=== PATIENT | male | born 1970 | race Caucasian/White ===

== ENCOUNTER 2016-08-25 12:49 | Observation (INO) | payer MEDICARE, OTHER ==
[~2016-08-25] VITALS: Ht 177.8 cm; Wt 70.0 kg
[~2016-08-25 12:49] MED LIST: CALC667T PO; COUM2.5T PO; DIALCAP PO; HYDR10TA16 PO; LEVO100T75 PO; METO50CR PO; OMEP20TA PO
[2016-08-25 12:51] VITALS: BP 109/67; PULSE 80; RESP 20; TEMP 97.9; O2SAT 100
[2016-08-25] MEDS ORDERED: OMEP20TA PO (13:25)
[2016-08-25] MEDS ORDERED: PHOS667C5 PO (13:25)
[2016-08-25] MEDS ORDERED: AMIO0.1T PO (13:25)
[2016-08-25] MEDS ORDERED: FAMO1TAB37 PO (13:25)
[2016-08-25] MEDS ORDERED: COUM5TAB PO (13:25)
[2016-08-25] MEDS ORDERED: DIAL3000 PO (13:25)
[2016-08-25] MEDS ORDERED: LEVO100T5 PO (13:25)
[2016-08-25] MEDS ORDERED: MSIR15 PO (13:27)
[2016-08-25] MEDS ORDERED: MORP1TAB25 PO (13:27)
[2016-08-25] MEDS ORDERED: LORA1TAB12 PO (13:28)
[2016-08-25 14:49] LABS: AUTOMATED NEUTROPHIL # 4.3 TH/MM3 (1.8-7.7); BASOPHIL # 0.1 TH/MM3 (0-0.2); BASOPHIL % 1.3 % (0.0-2.0); EOSINOPHIL # 0.4 TH/MM3 (0-0.4); EOSINOPHIL % 6.1 % (0.0-4.0); HEMATOCRIT 36.4 % (39.0-51.0); LYMPHOCYTE # 0.9 TH/MM3 (1.0-4.8); MEAN CELL VOLUME 94.6 FL (80.0-100.0); MEAN CORPUSCULAR HEMOGLOBIN 30.2 PG (27.0-34.0); MEAN CORPUSCULAR HGB CONC 31.9 % (32.0-36.0); MONO % 13.1 % (0.0-8.0); NEUT % 65.5 % (16.0-70.0); PLATELET COUNT 214 TH/MM3 (150-450); RED BLOOD COUNT 3.85 MIL/MM3 (4.50-5.90); RED CELL DISTRIBUTION WIDTH 18.7 % (11.6-17.2); WHITE BLOOD COUNT 6.6 TH/MM3 (4.0-11.0)
[2016-08-25 14:53] LABS: APTT (PATIENT) 28.5 SEC (24.3-30.1); INTERNATIONAL NORMALIZED RATIO 1.9 RATIO; PROTHROMBIN TIME - PATIENT 21.4 SEC (9.8-11.6)
[2016-08-25] MEDS ORDERED: traMADol HCL 50 MG TAB PO ONE (15:00)
[2016-08-25] MEDS ORDERED: CYCLOBENZAPRINE HCL 10 MG TAB PO ONE (15:00)
[2016-08-25 15:08] LABS: ALT (GPT) 53 U/L (12-78); ANION GAP 12 MEQ/L (5-15); AST (GOT) 86 U/L (15-37); BICARBONATE 28.2 MEQ/L (21.0-32.0); BLOOD UREA NITROGEN 33 MG/DL (7-18); CHLORIDE 97 MEQ/L (98-107); GLOMERULAR FILTRATION RATE 5 ML/MIN (>89); MAGNESIUM 2.8 MG/DL (1.5-2.5); SODIUM (NA) 137 MEQ/L (136-145)
[2016-08-25 15:10] LABS: POTASSIUM 4.9 MEQ/L (3.5-5.1)
[2016-08-25 15:13] LABS: ALKALINE PHOSPHATASE 70 U/L (45-117); TOTAL BILIRUBIN ADULT 0.8 MG/DL (0.2-1.0)
--- NOTE | 2016-08-25 15:15 | RADRPT ---
EXAM DATE/TIME: 08/25/2016 14:46 [facility] COMPARISON: CHEST PA & LAT, June 16, 2011, 14:04. INDICATIONS : Cough and shortness of breath. MEDICAL HISTORY : None. SURGICAL HISTORY : Pacemaker. ENCOUNTER: Initial ACUITY: 2 days PAIN SCORE: 0/10 LOCATION: chest FINDINGS: PA and lateral views of the chest demonstrate the lungs to be symmetrically aerated without evidence of mass, infiltrate or effusion. Right-sided defibrillator. The cardiomediastinal contours are unrem arkable. Osseous structures are intact. CONCLUSION: No acute disease. Berny Pedersen MD on August 25, 2016 at 15:13 Board Certified Radiologist. This report was verified electronically.
--- NOTE | 2016-08-25 15:16 | RADRPT ---
EXAM DATE/TIME: 08/25/2016 14:51 [facility] COMPARISON: No previous studies available for comparison. INDICATIONS : Patient complains of left femur pain proximally. MEDICAL HISTORY : None. SURGICAL HISTORY : Venous graft for left forearm in July 2016. ENCOUNTER: Initial ACUITY: 1 day PAIN SCORE: 5/10 LOCATION: Left Femur FINDINGS: Two view examination of the left femur demonstrates no evidence of fracture or dislocation. Bony min eralization is normal. The soft tissue structures are intact. Vascular calcifications. Radiopaque de nsities in the pelvis likely large bowel. CONCLUSION: No acute fracture. Berny Pedersen MD on August 25, 2016 at 15:14 Board Certified Radiologist. This report was verified electronically.
[2016-08-25 15:32] LABS: HEMO FLAGS AUTO DIFF
[2016-08-25 15:33] LABS: PLATELET ESTIMATE SMEAR NORMAL (NORMAL); PLATELET MORPHOLOGY NORMAL (NORMAL); SCAN/DIFF AUTO DIFF CONFIRMED
[2016-08-25 16:00] VITALS: BP 110/65; PULSE 70; RESP 18; O2SAT 97
[2016-08-25] MEDS ORDERED: ALUMINUM/MAGNESIUM/SIMETH 30 ML CUP PO ONE (16:15)
[2016-08-25] MEDS ORDERED: LIDOCAINE VISCOUS 2% SOLN 15 ML UDC PO ONE (16:15)
--- NOTE | 2016-08-25 17:11 | PD ---
HPI Chief Complaint: Medical Clearance Time Seen by Provider: 13:31 Travel History International Travel<30 days: No Contact w/Intl Traveler<30days: No Traveled to known affect area: No History of Present Illness HPI Patient is a 46-year-old male with history of end-stage renal disease, dialyzed yesterday, who comes in complaining of generalized weakness. He has multiple complaints including having difficulty opening, and low back pain. His "esophageal issues" having going on for months since May. He says he has had the back pain for the past 3 weeks and it mostly bothers him when bending down to pick things up. His friend is very concerned because he is just been feeling unwell and seems very weak. He says that he often falls asleep 15 times a day. He denies any chest pain or shortness of breath. He denies any nausea or vomiting. PFSH Past Medical History Hx Anticoagulant Therapy: Yes (coumadin) Blood Disorders: No Heart Rhythm Problems: Yes Cancer: No Cardiovascular Problems: Yes (htn, [place]) Chest Pain: No Diabetes: No Endocrine: Yes Gastrointestinal Disorders: No Glaucoma: No Genitourinary: No Hepatitis: No Hiatal Hernia: No Hypertension: Yes Immune Disorder: No Implanted Vascular Access Dvce: Yes (L ARM) Musculoskeletal: No Neurologic: No Psychiatric: No Reproductive: No Respiratory: No Integumentary: No Renal Failure: Yes Thyroid Disease: Yes Tetanus Vaccination: < 5 Years Influenza Vaccination: Yes Past Surgical History Body Medical Devices: pacer/aicd Pacemaker: Yes Thoracic Surgery: Yes (AICD) Other Surgery: Yes (KIDNEY TRANSPLANT, L ARM FISTULA) Social History Alcohol Use: No Tobacco Use: No Substance Use: No Allergies-Medications (Allergen,Severity, Reaction): Coded Allergies: Lisinopril (Verified Allergy, Severe, swelling, 08/25/16) Percocet (Verified Allergy, Severe, swelling, 08/25/16) Reported Meds & Prescriptions Reported Meds & Active Scripts Active Reported Lorazepam 1 Mg Tab 1 Mg PO HS PRN Morphine IR (Morphine Sulfate) 15 Mg Tab 15 Mg PO Q4H PRN Morphine ER (Morphine Sulfate) 30 Mg Tab 30 Mg PO Q8H Pepcid (Famotidine) 20 Mg Tab 20 Mg PO BID Dialyvite 3000 Rx (B-Complex W/ B-Sfmpzn-O-Minerals) 1 Tab 1 Tab PO DAILY Amiodarone (Amiodarone HCl) 100 Mg Tab 100 Mg PO BID Coumadin (Warfarin) 5 Mg Tab 5 Mg PO DAILY Omeprazole 20 Mg Tab 20 Mg PO DAILY Levothyroxine (Levothyroxine Sodium) 100 Mcg Tab 100 Mcg PO DAILY Phoslo (Calcium Acetate (Phosphate Binder)) 667 Mg Cap 800 Mg PO TID Review of Systems Except as stated in HPI: all other systems reviewed are Neg General / Constitutional: No: Fever, Chills HENT: No: Headaches, Lightheadedness Cardiovascular: No: Chest Pain or Discomfort Respiratory: No: Shortness of Breath Gastrointestinal: No: Nausea, Vomiting Musculoskeletal: Positive: Pain Neurologic: Positive: Weakness Physical Exam Narrative GENERAL: Awake and alert, in no acute distress. SKIN: Warm and dry. HEAD: Atraumatic. Normocephalic. EYES: Pupils equal and round. No scleral icterus. ENT: Mucous membranes pink and moist. NECK: Trachea midline. No JVD. CARDIOVASCULAR: Regular rate and rhythm. No murmur appreciated. RESPIRATORY: No accessory muscle use. Clear to auscultation. Breath sounds equal bilaterally. GASTROINTESTINAL: Abdomen soft, non-tender, nondistended. MUSCULOSKELETAL: No obvious deformities. No clubbing. No cyanosis. No edema. No spinal tenderness. NEUROLOGICAL: Awake and alert. No obvious cranial nerve deficits. Motor grossly within normal limits. Normal speech. PSYCHIATRIC: Appropriate mood and affect; insight and judgment normal. Data Data Last Documented VS Vital Signs Date Time Temp Pulse Resp B/P Pulse Ox O2 Delivery O2 Flow Rate FiO2 08/25/16 16:00 70 18 110/65 97 Room Air 08/25/16 12:51 97.9 Orders Complete Blood Count With Diff (08/25/16 13:53) Comprehensive Metabolic Panel (08/25/16 13:53) Electrocardiogram (08/25/16 ) Thyroid Stimulating Hormone (08/25/16 13:53) Magnesium (Mg) (08/25/16 13:53) Phosphorus (Po4) (08/25/16 13:53) Troponin I (08/25/16 13:53) Chest, Pa & Lat (08/25/16 ) Femur (Ap & Lat/2vws) (08/25/16 ) Act Partial Throm Time (Ptt) (08/25/16 14:25) Prothrombin Time / Inr (Pt) (08/25/16 14:25) Tramadol (Ultram) (08/25/16 15:00) Cyclobenzaprine (Flexeril) (08/25/16 15:00) Al-Mag Hy-Si 40-40-4 Mg/Ml Liq (Mag-Al P (08/25/16 16:15) Lidocaine 2% Viscous (Xylocaine 2% Visco (08/25/16 16:15) Admit Order (Ed Use Only) (08/25/16 ) Labs Laboratory Tests Test 08/25/16 14:25 White Blood Count 6.6 TH/MM3 Red Blood Count 3.85 MIL/MM3 Hemoglobin 11.6 GM/DL Hematocrit 36.4 % Mean Corpuscular Volume 94.6 FL Mean Corpuscular Hemoglobin 30.2 PG Mean Corpuscular Hemoglobin 31.9 % Concent Red Cell Distribution Width 18.7 % Platelet Count 214 TH/MM3 Mean Platelet Volume 10.8 FL Neutrophils (%) (Auto) 65.5 % Lymphocytes (%) (Auto) 14.0 % Monocytes (%) (Auto) 13.1 % Eosinophils (%) (Auto) 6.1 % Basophils (%) (Auto) 1.3 % Neutrophils # (Auto) 4.3 TH/MM3 Lymphocytes # (Auto) 0.9 TH/MM3 Monocytes # (Auto) 0.9 TH/MM3 Eosinophils # (Auto) 0.4 TH/MM3 Basophils # (Auto) 0.1 TH/MM3 CBC Comment AUTO DIFF Differential Comment AUTO DIFF CONFIRMED Platelet Estimate NORMAL Platelet Morphology Comment NORMAL Red Cell Morphology Comment NORMAL Prothrombin Time 21.4 SEC Prothromb Time International 1.9 RATIO Ratio Activated Partial 28.5 SEC Thromboplast Time Sodium Level 137 MEQ/L Potassium Level 4.9 MEQ/L Chloride Level 97 MEQ/L Carbon Dioxide Level 28.2 MEQ/L Anion Gap 12 MEQ/L Blood Urea Nitrogen 33 MG/DL Creatinine 10.43 MG/DL Estimat Glomerular Filtration 5 ML/MIN Rate Random Glucose 88 MG/DL Calcium Level 10.4 MG/DL Phosphorus Level 3.2 MG/DL Magnesium Level 2.8 MG/DL Total Bilirubin 0.8 MG/DL Aspartate Amino Transf 86 U/L (AST/SGOT) Alanine Aminotransferase 53 U/L (ALT/SGPT) Alkaline Phosphatase 70 U/L Troponin I 0.07 NG/ML Total Protein 9.6 GM/DL Albumin 3.6 GM/DL Thyroid Stimulating Hormone 19.600 uIU/ML 3rd Gen [facility] Medical Decision Making Medical Screen Exam Complete: Yes Emergency Medical Condition: Yes Medical Record Reviewed: Yes Interpretation(s) ECG shows paced rhythm Differential Diagnosis ACS versus hypothyroidism versus electrolyte abnormality Narrative Course Patient is a 46 year old male who comes in complaining of weakness. He also has multiple other chronic complaints. Exam shows no acute abnormalities. Patient was dialyzed yesterday. IV established, labs sent. Labs show a troponin of 0.07. TSH is elevated to 19. I informed the patient he needs to follow up with his doctors regarding his chronic issues. He will be admitted for his elevated troponin. Diagnosis Primary Impression: Elevated troponin Admitting Information Admitting Physician Requests: Admit Condition: Stable Shanice Magana MD Aug 25, 2016 17:11
--- NOTE | 2016-08-25 17:14 | HHI.FPPN ---
Subjective Subjective Patient seen and examined. Case reviewed and discussed Please refer to resident H&P for further details regarding HPI, ROS, PMH, SurgHx , FH and SocHx In summary, patient is an unfortunate 46yoM with multiple medical comborbidities including ESRD on HD, afib s/p ablation, CHF, DVT presenting with progressive worsening of swallowing and some pressure over mid-chest. He reports a history of complicated endoscopy and reports his swallowing became a little improved, but now it has continued to worsen over the last 1 month. [facility] Objective Objective Last Impressions Femur X-Ray 08/25/16 0000 Signed Impressions: Service Date/Time: Thursday, August 25, 2016 14:51 - CONCLUSION: No acute fracture. Berny Pedersen MD Chest X-Ray 08/25/16 0000 Signed Impressions: Service Date/Time: Thursday, August 25, 2016 14:46 - CONCLUSION: No acute disease. Berny Pedersen MD Laboratory Tests - Abnormals Test 08/25/16 14:25 Red Blood Count 3.85 MIL/MM3 Hemoglobin 11.6 GM/DL Hematocrit 36.4 % Mean Corpuscular Hemoglobin 31.9 % Concent Red Cell Distribution Width 18.7 % Monocytes (%) (Auto) 13.1 % Eosinophils (%) (Auto) 6.1 % Lymphocytes # (Auto) 0.9 TH/MM3 Prothrombin Time 21.4 SEC Chloride Level 97 MEQ/L Blood Urea Nitrogen 33 MG/DL Creatinine 10.43 MG/DL Estimat Glomerular Filtration 5 ML/MIN Rate Calcium Level 10.4 MG/DL Magnesium Level 2.8 MG/DL Aspartate Amino Transf 86 U/L (AST/SGOT) Troponin I 0.07 NG/ML Total Protein 9.6 GM/DL Thyroid Stimulating Hormone 19.600 uIU/ML 3rd Gen Vital Signs 08/25/16 08/25/16 12:51 13:14 Temp 97.9 Pulse 80 85 Resp 20 18 B/P 109/67 Pulse Ox 100 O2 Delivery Room Air Physical exam GENERAL: Thin male sitting up in bed, NAD SKIN: Warm and dry. Multiple scars from prior procedures HEAD: Normocephalic. AT EYES: No scleral icterus. No injection or drainage. ENT: OP clear. MM slightly dry NECK: Supple, trachea midline. No JVD or lymphadenopathy. CARDIOVASCULAR: Regular rate and rhythm without murmurs, gallops, or rubs. RESPIRATORY: Breath sounds equal bilaterally. No accessory muscle use. GASTROINTESTINAL: Abdomen soft, non-tender, nondistended. MUSCULOSKELETAL: No cyanosis, 1+ edema b/l LE to the knees. AVF L UE, L hand digits with partial amputations BACK: Nontender without obvious deformity. No CVA tenderness. NEURO: Awake and alert. Normal speech. CN grossly intact. Assessment Assessment 46yoM admitted with: ESRD Chronic Systolic Congestive Heart failure s/p PM Afib s/p ablation Multiple skin infections with poor wound healing DVT on anticoagulation Ankle fracture surgery Hx Diverticulitis AV Fistula PLAN PLAN STAT doppler LE to r/o DVT given subtherapeutic INR Resume home meds as appropriate Nephrology consult for HD ACS r/o with serial trop, ekg Supplemental oxygen as needed Dressing changes for hand Barium swallow Consider GI consult pending results ST Patient seen and examined. Case reviewed and discussed Agree with plan of care as discussed with me and documented in the resident note. Shabana Lazar MD Aug 25, 2016 17:14
--- NOTE | 2016-08-25 17:27 | HHI.HP ---
HPI Service Family Medicine Primary Care Physician Unknown Admission Diagnosis ACS Diagnoses: International Travel<30 Days: No Contact w/Intl Traveler<30days: No Known Affected Area: No History of Present Illness Patient is a 46-year-old male with a past medical history of AFIB s/p ablation, MN, CHF s/p AICD placement, ESRD, DVTs, and HTN that presents to the [place] ED with a chief complaint of chest pain and weakness that began after he had dialysis yesterday 08/24. He describes the chest pain as sharp pain that is worse when he takes deep breaths. The patient also has additional complaints including throat pain began in May 2016 after he had an esophageal perforation from endoscopy. Consequently, he has not been able to eat much and has lost 25 pounds. He complains that he is malnourished and needs help. He denies fever, nausea, dizziness, vomiting, and night sweats but states that he feels cold all the time. He has dialysis every Saturday, Saturday and Saturday, and his coating engineer is Dr. Brooks Salazar. PCP is Dr. Ravi Flores. Review of Systems Constitutional: COMPLAINS OF: Fatigue, Weight loss Eyes: COMPLAINS OF: Blurred vision, Vision loss Ears, nose, mouth, throat: COMPLAINS OF: Nasal discharge, Throat pain, DENIES : Hearing loss Respiratory: COMPLAINS OF: Cough, DENIES: Shortness of breath Cardiovascular: COMPLAINS OF: Chest pain Gastrointestinal: COMPLAINS OF: Abdominal pain, DENIES: Nausea, Vomiting Musculoskeletal: COMPLAINS OF: Joint pain, Back pain Integumentary: DENIES: Rash Neurologic: COMPLAINS OF: Headache, Paresthesias (right hand ) Psychiatric: DENIES: Anxiety, Depression (sadness because of what he is going through) Past Family Social History Past Medical History -ESRD -Heart failure -Denies HTN Past Surgical History -Pacemaker insertion -Ankle fracture surgery -Bowel surgery - had a colostomy bag for 6 months AV Fistula in left arm Reported Medications Reported Meds & Active Scripts Active Reported Lorazepam 1 Mg Tab 1 Mg PO HS PRN Morphine IR (Morphine Sulfate) 15 Mg Tab 15 Mg PO Q4H PRN Morphine ER (Morphine Sulfate) 30 Mg Tab 30 Mg PO Q8H Pepcid (Famotidine) 20 Mg Tab 20 Mg PO BID Dialyvite 3000 Rx (B-Complex W/ G-Yhuzqz-C-Minerals) 1 Tab 1 Tab PO DAILY Amiodarone (Amiodarone HCl) 100 Mg Tab 100 Mg PO BID Coumadin (Warfarin) 5 Mg Tab 5 Mg PO DAILY Omeprazole 20 Mg Tab 20 Mg PO DAILY Levothyroxine (Levothyroxine Sodium) 100 Mcg Tab 100 Mcg PO DAILY Phoslo (Calcium Acetate (Phosphate Binder)) 667 Mg Cap 800 Mg PO TID Allergies: Coded Allergies: Lisinopril (Verified Allergy, Severe, swelling, 08/25/16) Percocet (Verified Allergy, Severe, swelling, 08/25/16) Family History Dad - Triple bypass heart surgery, colon cancer Mom - HTN Social History -Lives by himself, on disability -Denies smoking, quit 4-5 years, smoked since 17 yrs x 4-5 cigs/day -Denies alcohol - 2-3 cranberry/vodka socially -No drugs, no marijuana use Physical Exam Vital Signs Vital Signs Date Time Temp Pulse Resp B/P Pulse Ox O2 Delivery O2 Flow Rate FiO2 08/25/16 13:14 85 18 08/25/16 12:51 97.9 80 20 109/67 100 Room Air Physical Exam GENERAL: Adult male of stated age in no respiratory distress SKIN: 3 fingers of left hand wrapped in dressing, longitudinal scar on left medial extremity running from lower leg to thigh, AV fistula present on left upper extremity HEAD: Atraumatic. Normocephalic. No temporal or scalp tenderness. EYES: Pupils equal round and reactive. Extraocular motions intact. No scleral icterus. No injection or drainage. ENT: Nose without bleeding, purulent drainage or septal hematoma. Throat without erythema, tonsillar hypertrophy or exudate. Uvula midline. Airway patent. NECK: Trachea midline. No JVD or lymphadenopathy. Supple, nontender, no meningeal signs. CARDIOVASCULAR: Regular rate, paced rhythm. RESPIRATORY: Clear to auscultation. Breath sounds equal bilaterally. No wheezes , rales, or rhonchi. GASTROINTESTINAL: Abdomen soft, non-tender, nondistended. No hepato-splenomegaly , or palpable masses. No guarding. MUSCULOSKELETAL: Extremities without clubbing, cyanosis, or edema. No joint tenderness, effusion, or edema noted. NEUROLOGICAL: Awake and alert. Cranial nerves II through XII intact. 3 out of 5 strength in right lower extremity, otherwise normal. Normal speech. Laboratory Laboratory Tests Test 08/25/16 14:25 White Blood Count 6.6 Red Blood Count 3.85 Hemoglobin 11.6 Hematocrit 36.4 Mean Corpuscular Volume 94.6 Mean Corpuscular Hemoglobin 30.2 Mean Corpuscular Hemoglobin 31.9 Concent Red Cell Distribution Width 18.7 Platelet Count 214 Mean Platelet Volume 10.8 Neutrophils (%) (Auto) 65.5 Lymphocytes (%) (Auto) 14.0 Monocytes (%) (Auto) 13.1 Eosinophils (%) (Auto) 6.1 Basophils (%) (Auto) 1.3 Neutrophils # (Auto) 4.3 Lymphocytes # (Auto) 0.9 Monocytes # (Auto) 0.9 Eosinophils # (Auto) 0.4 Basophils # (Auto) 0.1 CBC Comment AUTO DIFF Differential Comment AUTO DIFF CONFIRMED Platelet Estimate NORMAL Platelet Morphology Comment NORMAL Red Cell Morphology Comment NORMAL Prothrombin Time 21.4 Prothromb Time International 1.9 Ratio Activated Partial 28.5 Thromboplast Time Sodium Level 137 Potassium Level 4.9 Chloride Level 97 Carbon Dioxide Level 28.2 Anion Gap 12 Blood Urea Nitrogen 33 Creatinine 10.43 Estimat Glomerular Filtration 5 Rate Random Glucose 88 Calcium Level 10.4 Phosphorus Level 3.2 Magnesium Level 2.8 Total Bilirubin 0.8 Aspartate Amino Transf 86 (AST/SGOT) Alanine Aminotransferase 53 (ALT/SGPT) Alkaline Phosphatase 70 Troponin I 0.07 Total Protein 9.6 Albumin 3.6 Thyroid Stimulating Hormone 19.600 3rd Gen Result Diagram: 08/25/16 1425 08/25/16 1425 Imaging Last Impressions Femur X-Ray 08/25/16 0000 Signed Impressions: Service Date/Time: Thursday, August 25, 2016 14:51 - CONCLUSION: No acute fracture. Berny Pedersen MD Chest X-Ray 08/25/16 0000 Signed Impressions: Service Date/Time: Thursday, August 25, 2016 14:46 - CONCLUSION: No acute disease. Berny Pedersen MD Assessment and Plan Assessment and Plan 46 y/o male with a PMH of AFIB s/p ablation, MN, CHF s/p AICD placement, ESRD, DVTs, and HTN presents with a chief complaint of weakness after dialysis. He will be admitted on observation for ACS rule out. Code Status Full code Discussed Condition With Will discuss with Dr. Mcallister and Dr. Lazar Problem List: (1) ACS rule out Status: Acute Plan: -Initial troponin elevated at 0.07 - most likely due to ESRD -Initial EKG shows electronic ventricular pacemaker rhythm -Trending troponin/EKG 3 -Chest x-ray within normal limits (2) CHF (congestive heart failure) Status: Acute Plan: -AICD in place -Clear chest x-ray - will monitor for signs of fluid overload -Vitals every 4 hours (3) ESRD (end stage renal disease) Status: Acute Plan: -Creatinine 10.43 on admission -Creatinine runs around 13 at home -Patient receives dialysis on Saturday, Saturday, Saturday -Nephrology consult for dialysis while inpatient (4) History of Afib and DVT Status: Acute Plan: -Continue Warfarin - pharmacy consulted to assist with management (5) Dysphagia Status: Acute Plan: -Barium swallow -Speech therapy consult (6) Hypertension Status: Acute Plan: -Normotensive on admission -We will continue to monitor (7) Hypothyroidism Status: Acute Plan: -TSH elevated at 19.6 -Continue levothyroxine 100 g PO daily (8) Malnutrition Status: Acute Plan: -Renal diet -Dietary consult to assist with nutritional needs in the setting of dysphagia (9) FEN/DVT PPX/GI PPX Status: Acute Plan: Fluids: Oral fluids only Electrolytes: Will monitor and replace as needed Nutrition: Renal diet DVT Prophylaxis: Currently on warfarin 5 mg with pharmacy consult GI Prophylaxis: Famotidine 20 mg by mouth daily Wound care to assist with dressing changes for left hand Eko,Gertrude Aquino MD R1 Aug 25, 2016 17:26
[2016-08-25] MEDS: WARFARIN SOD 5 MG TAB PO SCH (18:29)
[2016-08-25] MEDS ORDERED: ENOXAPARIN SODIUM 30 MG/0.3 ML SYRINGE SQ SCH (18:30)
[2016-08-25] MEDS ORDERED: SODIUM CHLORIDE 0.9% FLUSH 5 ML FLUSH IVF PRN (18:30)
[2016-08-25] MEDS ORDERED: DOCUSATE SODIUM 50 MG/SENNA 8.6 MG TAB PO PRN (18:30)
[2016-08-25] MEDS ORDERED: ACETAMINOPHEN 325 MG TAB PO PRN (18:30)
[2016-08-25] MEDS ORDERED: ZOLPIDEM TARTRATE 5 MG TAB PO PRN (18:30)
[2016-08-25] MEDS ORDERED: NALOXONE HCL 0.4 MG/ML AMP IV PRN (18:30)
[2016-08-25] MEDS ORDERED: ONDANSETRON HCL 4 MG/2 ML VIAL IV PRN (18:30)
[2016-08-25] MEDS ORDERED: PILL SPLITTER OTHER PRN (19:15)
[2016-08-25 19:52] VITALS: BP 101/67; PULSE 69; RESP 18; O2SAT 98
[2016-08-25 20:17] VITALS: BP 113/60; PULSE 74; RESP 20; TEMP 97.7; O2SAT 100
--- NOTE | 2016-08-25 20:40 | EKG ---
Date Performed: 08/25/2016 Time Performed: 16:12:35 PTAGE: 46 years EKG: ELECTRONIC VENTRICULAR PACEMAKER ABNORMAL RHYTHM ECG PREVIOUS TRACING : 06/10/2013 05.03 No significant change from previous tracing noted. DOCTOR: Fan [employer] Interpretating Date/Time 08/25/2016 20:39:24
[2016-08-25] MEDS: FAMOTIDINE 20 MG TAB PO SCH (20:47)
[2016-08-25] MEDS: AMIODARONE 200 MG TAB PO SCH (20:47)
[2016-08-25] MEDS: SODIUM CHLORIDE 0.9% FLUSH 5 ML FLUSH IVF SCH (20:48)
[2016-08-25] MEDS: MORPHINE SULFATE 4 MG/ML INJ IV PRN (21:05)
[2016-08-26] VITALS (7 sets, daily range): BP systolic 114–155; BP diastolic 47–94; PULSE 71–77; RESP 18–20; TEMP 97.4–98.8; O2SAT 95–98
--- NOTE | 2016-08-26 02:46 | RADRPT ---
EXAM DATE/TIME: 08/26/2016 01:57 [facility] COMPARISON: No previous studies available for comparison. INDICATIONS : Pain in bilateral lower extremities. MEDICAL HISTORY : Myocardial infarction. Hypertension. End stage renal disease. Heart failure. SURGICAL HISTORY : Pacemaker. Colostomy. Ankle fracture repair. AVF left arm. Renal transplant. ENCOUNTER: Initial ACUITY: 1 month PAIN SCORE: 5/10 LOCATION: Bilateral legs. TECHNIQUE: Venous ultrasound of the left and right leg was performed from the inguinal ligament to the proximal calf. Real-time, color Doppler and spectral tracing, compression and augmentation techniques were us ed. FINDINGS: RIGHT LEG: There is normal compressibility of the deep venous system from the inguinal region to the proximal ca lf. No echogenic clot is seen in the lumen of the common femoral, femoral, popliteal, and posterior tibial veins. There is a normal response of the venous system to proximal and distal augmentation an d respiration. LEFT LEG: There is normal compressibility of the deep venous system from the inguinal region to the proximal ca lf. No echogenic clot is seen in the lumen of the common femoral, femoral, popliteal, and posterior tibial veins. There is a normal response of the venous system to proximal and distal augmentation an d respiration. CONCLUSION: Normal examination. Trevor Dias MD on August 26, 2016 at 2:45 Board Certified Radiologist. This report was verified electronically.
[2016-08-26 04:47] LABS: AUTOMATED NEUTROPHIL # 1.8 TH/MM3 (1.8-7.7); BASOPHIL % 1.1 % (0.0-2.0); EOSINOPHIL # 0.4 TH/MM3 (0-0.4); EOSINOPHIL % 10.1 % (0.0-4.0); HEMATOCRIT 29.4 % (39.0-51.0); HEMO FLAGS DIFF FINAL; LYMPH % 17.7 % (9.0-44.0); LYMPHOCYTE # 0.6 TH/MM3 (1.0-4.8); MEAN CELL VOLUME 96.5 FL (80.0-100.0); MEAN CORPUSCULAR HEMOGLOBIN 29.3 PG (27.0-34.0); MEAN CORPUSCULAR HGB CONC 30.3 % (32.0-36.0); MONO % 19.5 % (0.0-8.0); NEUT % 51.6 % (16.0-70.0); PLATELET COUNT 128 TH/MM3 (150-450); RED BLOOD COUNT 3.05 MIL/MM3 (4.50-5.90); RED CELL DISTRIBUTION WIDTH 18.3 % (11.6-17.2); WHITE BLOOD COUNT 3.6 TH/MM3 (4.0-11.0)
[2016-08-26 04:50] LABS: PROTHROMBIN TIME - PATIENT 23.3 SEC (9.8-11.6)
[2016-08-26 05:13] LABS: ANION GAP 11 MEQ/L (5-15)
[2016-08-26 05:16] LABS: ALKALINE PHOSPHATASE 57 U/L (45-117); ALT (GPT) 33 U/L (12-78); AST (GOT) 31 U/L (15-37); BICARBONATE 28.2 MEQ/L (21.0-32.0); BLOOD UREA NITROGEN 41 MG/DL (7-18); CHLORIDE 101 MEQ/L (98-107); GLOMERULAR FILTRATION RATE 5 ML/MIN (>89); POTASSIUM 3.2 MEQ/L (3.5-5.1); SODIUM (NA) 140 MEQ/L (136-145); TOTAL BILIRUBIN ADULT 0.6 MG/DL (0.2-1.0)
[2016-08-26] MEDS: MORPHINE SULFATE 4 MG/ML INJ IV PRN ×3 (06:06→18:27)
[2016-08-26] MEDS: LEVOTHYROXINE SODIUM 100 MCG TAB PO SCH (06:06)
[2016-08-26] MEDS ORDERED: POTASSIUM CHLORIDE 20 MEQ CONTROLLED RELEASE TAB PO ONE (07:00)
[2016-08-26] MEDS ORDERED: CALCIUM ACETATE 667 MG CAP PO SCH (08:00)
[2016-08-26] MEDS: SODIUM CHLORIDE 0.9% FLUSH 5 ML FLUSH IVF SCH ×2 (09:00→20:57)
--- NOTE | 2016-08-26 09:14 | EKG ---
Date Performed: 08/26/2016 Time Performed: 02:26:28 PTAGE: 46 years EKG: ELECTRONIC VENTRICULAR PACEMAKER ABNORMAL RHYTHM ECG PREVIOUS TRACING : 08/25/2016 21.56 No significant change from previous tracing noted. DOCTOR: Fan [employer] Interpretating Date/Time 08/26/2016 09:13:41
--- NOTE | 2016-08-26 09:18 | EKG ---
Date Performed: 08/25/2016 Time Performed: 21:56:27 PTAGE: 46 years EKG: ELECTRONIC VENTRICULAR PACEMAKER ABNORMAL RHYTHM ECG PREVIOUS TRACING : 08/25/2016 16.12 No significant change from previous tracing noted. DOCTOR: Fan Pride Interpretating Date/Time 08/26/2016 09:16:34
[2016-08-26] MEDS ORDERED: SODIUM CHLOR 0.9% 1000 ML INJ 1,000 ML IV PRN ×3 (09:33)
[2016-08-26] MEDS ORDERED: GELATIN 12 MM/7 MM FOAM TOP PRN (09:45)
[2016-08-26] MEDS ORDERED: GENTAMICIN SULFATE (DIALYSIS USE ONLY) 20 MG/2 ML VIAL IV PRN (09:45)
[2016-08-26] MEDS ORDERED: diphenhydrAMINE HCL 25 MG CAP PO PRN (09:45)
[2016-08-26] MEDS ORDERED: ONDANSETRON HCL 4 MG/2 ML VIAL IV PRN (09:45)
[2016-08-26] MEDS ORDERED: NITROGLYCERIN 0.4 MG SL 25 TABS/BTL SL PRN (09:45)
[2016-08-26] MEDS ORDERED: EPOETIN ALFA 10,000 UNITS/ML VIAL IV PRN (09:45)
[2016-08-26] MEDS ORDERED: HEPARIN SODIUM - IV 10,000 UNITS/10 ML VIAL IVF PRN (09:45)
[2016-08-26] MEDS ORDERED: ACETAMINOPHEN 325 MG TAB PO PRN (09:45)
[2016-08-26] MEDS ORDERED: SODIUM CHLORIDE 0.9% FLUSH 5 ML FLUSH IVF PRN (09:45)
[2016-08-26] MEDS ORDERED: ALBUMIN HUMAN 25% 25 GM/100 ML BAGP IV PRN (09:45)
[2016-08-26] MEDS ORDERED: cloNIDine HCL 0.1 MG TAB PO PRN (09:45)
[2016-08-26] MEDS ORDERED: MANNITOL 12.5 GM/50 ML VIAL IV PRN (09:45)
[2016-08-26] MEDS ORDERED: HEPARIN SODIUM - IV 10,000 UNITS/10 ML VIAL PRN (09:45)
[2016-08-26] MEDS: AMIODARONE 200 MG TAB PO SCH ×2 (09:54→20:57)
[2016-08-26] MEDS: VITAMIN B CMPLX/VITC/FOLIC AC CAP PO SCH (09:55)
--- NOTE | 2016-08-26 09:55 | MB ---
cc: WILFREDO CROOK MD DATE OF CONSULTATION: 08/26/2016 REASON FOR CONSULTATION: End-stage renal disease on hemodialysis for management. HISTORY OF PRESENT ILLNESS This is very pleasant 46-year-old male with past medical history of ischemic heart disease, atrial fibrillation, congestive heart failure, hypertension, history of deep vein thrombosis on warfarin, history of steal syndrome in the left hand and history of end-stage renal disease on hemodialysis three times per week, who came to the hospital with complaint of chest pain. I was called to see the patient for the management of dialysis. The patient has been on hemodialysis Saturday, Saturday and Saturday. He is following with Dr. Salazar. He lives in [place]. The patient started having chest pain yesterday and it was mainly retrosternal. The pain increases when he takes a deep breath. He has cough with whitish sputum. The patient denies history of weight loss. He lost about 25 pounds according to him in the last one moth. He had endoscopy done and according to him after which he developed esophageal tear and he has a hard time swallowing the food. He was seen by the GI doctor and was given some medication to decrease the swelling. PAST MEDICAL HISTORY: 1. Hypertension. 2. Ischemic heart disease. 3. Congestive heart failure. 4. Atrial fibrillation. 5. Deep venous thrombosis. 6. End-stage renal disease on hemodialysis. PAST SURGICAL HISTORY: 1. Pacemaker insertion. 2. Left arm A-V fistula surgery. 3. Revision surgery in the left arm for steal syndrome. 4. Bowel surgery. 5. Endoscopy. 6. History of colostomy. REVIEW OF SYSTEMS There is no history of fever. No sore throat. The patient has chest pain which is intermittent increased by taking deep breaths. This has been going on for the last 2-3 days improved by rest and breathing shallow. He has cough with whitish sputum. No history of fever. He has difficulty swallowing because of the esophageal tear he has in the past and his appetite is not very good. There is no history of diarrhea. SOCIAL HISTORY: The patient is single. He stopped smoking 4-5 years ago. Occasionally drinks alcoholic beverages. FAMILY HISTORY: Father has bypass surgery and has colon cancer. Mother has hypertension. ALLERGIES: LISINOPRIL PERCOCET MEDICATIONS: 1. Amiodarone 100 mg b.i.d. 1. Pepcid 10 mg b.i.d. 2. Nephrocaps 1 capsule daily. 3. Levothyroxine 100 mcg once a day. 4. Coumadin 5 mg once a day 5. PhosLo 667 mg t.i.d. 6. Morphine as needed 7. Cheryl-Colace. 8. Ambien as needed. PHYSICAL EXAMINATION: The patient is awake, alert. He is not in acute distress. VITAL SIGNS: Blood pressure 114/58, temperature is 97.4, oxygen saturation 96-98%. HEENT: Pupils equal and reactive to light. Nonicteric sclera, conjunctiva pale. Neck: Supple. JVD is elevated. Lungs: The patient has bilateral decreased air entry with occasional wheezing. Heart: S1-S2, irregular rhythm. Abdomen: Soft, lax. There is no tenderness. Bowel sounds positive. Extremities: No edema in the legs. The left arm has AV fistula and two of his fingers on the left hand are covered with a dressing. He has partial amputation of the second finger because of steal syndrome. INVESTIGATIONS: WBC count is 3.6, hemoglobin 8.9, platelet count 128, neutrophils 51.6%, sodium 140, potassium 3.2, chloride 101, bicarb 28.2, BUN 41, creatinine 11.6, AST, ALT normal. Troponin-I was 0.06, albumin 2.6, total protein 7.2, INR is 2.0, blood cultures are pending. IMAGING STUDIES The patient has ultrasound of the lower extremities done which was negative for deep vein thrombosis. Chest x-ray was done which shows lung king clear. Left femur x-ray was done which shows no acute fracture. ASSESSMENT/PLAN 1. Chest pain rule out acute ischemia. 2. End-stage renal disease on hemodialysis. 3. Anemia. 4. Hypertension 5. History of atrial fibrillation 6. Hypokalemia. The patient has multiple risk factors and has history of cardiac ischemia. Currently his troponins are still in the normal range. Chest pain seems to be atypical. The patient is due for dialysis tomorrow. I will make arrangements for that. He has been following with Dr. Salazar. I will follow him while he is in the hospital here. Thank you for the consultation. Chas Q. Jumani, MD AQJ/GAYATRI /9:31 AM /9:42 AM
[2016-08-26] MEDS: FAMOTIDINE 20 MG TAB PO SCH ×2 (10:04→20:57)
[2016-08-26] MEDS ORDERED: LIDOCAINE VISCOUS 2% SOLN 15 ML UDC SWISH-SWAL ONE (13:15)
[2016-08-26] MEDS ORDERED: ALUMINUM/MAGNESIUM/SIMETH 30 ML CUP PO ONE (13:15)
[2016-08-26] MEDS: CALCIUM ACETATE 667 MG CAP PO SCH ×2 (14:15→17:58)
--- NOTE | 2016-08-26 14:38 | HHI.FPPN ---
Subjective Remarks Patient is doing a little better this morning. He still complains of weakness, pain in his throat, back pain, and chest pain, but states that overall he is doing better. Concerning the throat pain, he stated that he had a CT done recently as recommended by his GI physician, Dr. Larsen, to make sure that he does not have an esophageal perforation. He wanted to know if he could have a GI cocktail was offered to him at the ED yesterday, which was very helpful. (Gertrude Escalante MD R1) Objective Vitals Vital Signs Date Time Temp Pulse Resp B/P Pulse Ox O2 Delivery O2 Flow Rate FiO2 08/26/16 12:56 97.6 72 18 127/62 98 08/26/16 09:59 20 08/26/16 08:14 97.4 75 18 114/58 96 08/26/16 07:21 98 21 08/26/16 04:36 97.5 71 20 124/56 97 08/26/16 00:47 97.6 72 20 146/63 98 08/25/16 20:17 97.7 74 20 113/60 100 08/25/16 19:52 69 18 101/67 98 Room Air 08/25/16 16:00 70 18 110/65 97 Room Air (Gertrude Escalante MD R1) Result Diagram: 08/26/1640608/26/16406 Objective Remarks GENERAL: Adult male of stated age in no respiratory distress SKIN: 3 fingers of left hand wrapped in dressing, well-healing longitudinal scar on left medial extremity running from lower leg to thigh, AV fistula present on left upper extremity HEAD: Atraumatic. Normocephalic. No temporal or scalp tenderness. EYES: Pupils equal round and reactive. Extraocular motions intact. No scleral icterus. No injection or drainage. ENT: Nose without bleeding, purulent drainage or septal hematoma. Throat without erythema, tonsillar hypertrophy or exudate. Uvula midline. Airway patent. NECK: Trachea midline. No JVD or lymphadenopathy. Supple, nontender, no meningeal signs. CARDIOVASCULAR: Regular rate, paced rhythm. RESPIRATORY: Clear to auscultation. Breath sounds equal bilaterally. No wheezes , rales, or rhonchi. GASTROINTESTINAL: Abdomen soft, non-tender, nondistended. No hepato-splenomegaly , or palpable masses. No guarding. MUSCULOSKELETAL: Extremities without clubbing, cyanosis, or edema. No joint tenderness, effusion, or edema noted. NEUROLOGICAL: Awake and alert. Cranial nerves II through XII intact. 4 out of 5 strength in right lower extremity, improved from previous day, otherwise normal. Normal speech. (Eko,Gertrude Aquino MD R1) A/P Assessment and Plan 46 y/o male with a PMH of AFIB s/p ablation, [place] secondary to hyperphosphatemia, CHF s/p AICD placement, ESRD, DVTs, and HTN presents with a chief complaint of weakness after dialysis. He will be admitted on observation for ACS rule out. Discharge Planning Will request CT scan records from [facility] to confirm that patient does not have an esophageal perforation. (Gertrude Escalante MD R1) Attending Attestation Patient seen and examined with the resident team. Case reviewed and discussed Agree with plan of care as discussed with me and documented in the resident note (Shabana Lazar MD) Problem List: (1) ACS rule out Status: Acute Plan: -Initial troponin elevated at 0.07 - most likely due to ESRD -Initial EKG shows electronic ventricular pacemaker rhythm -Troponin/EKG 3 wnl -Chest x-ray within normal limits (2) CHF (congestive heart failure) Status: Chronic Plan: -AICD in place -Clear chest x-ray - will monitor for signs of fluid overload -Vitals every 4 hours (3) ESRD (end stage renal disease) Status: Chronic Plan: -Creatinine 10.43 on admission -Creatinine runs around 13 at home -Patient receives dialysis on Saturday, Saturday, Saturday -Nephrology consult for dialysis while inpatient (4) History of Afib and DVT Status: Chronic Plan: -Continue Warfarin - pharmacy consulted to assist with management (5) Dysphagia Status: Acute Plan: -Barium swallow tomorrow a.m. -Speech therapy consult (6) Hypertension Status: Chronic Plan: -Normotensive on admission -We will continue to monitor (7) Hypothyroidism Status: Chronic Plan: -TSH elevated at 19.6 -Free T4 WNL at 1.03 -Continue levothyroxine 100 g PO daily (8) Malnutrition Status: Acute Plan: -Renal diet -Dietary consult to assist with nutritional needs in the setting of dysphagia (9) FEN/DVT PPX/GI PPX Status: Acute Plan: Fluids: Oral fluids only Electrolytes: Will monitor and replace as needed Nutrition: Renal diet DVT Prophylaxis: Currently on warfarin 5 mg with pharmacy consult GI Prophylaxis: Famotidine 20 mg by mouth daily Wound care to assist with dressing changes for left hand (Gertrude Escalante MD R1) Problem Qualifiers (1) CHF (congestive heart failure): (2) Hypertension: Qualified Code: I10 - Essential hypertension Gertrude Escalante MD R1 Aug 26, 2016 14:38 Shabana Lazar MD Aug 28, 2016 14:57
[2016-08-26] MEDS: WARFARIN SOD 5 MG TAB PO SCH (17:57)
[2016-08-27] VITALS: BP 112/68; PULSE 78; RESP 21; TEMP 98.2; O2SAT 98
[2016-08-27] MEDS: MORPHINE SULFATE 4 MG/ML INJ IV PRN ×3 (00:36→13:46)
[2016-08-27] MEDS ORDERED: ALUMINUM/MAGNESIUM/SIMETH 30 ML CUP PO ONE (01:15)
[2016-08-27] MEDS ORDERED: LIDOCAINE VISCOUS 2% SOLN 15 ML UDC SWISH-SWAL PRN ×2 (01:15→09:00)
[2016-08-27 04:43] LABS: AUTOMATED NEUTROPHIL # 1.9 TH/MM3 (1.8-7.7); BASOPHIL # 0.1 TH/MM3 (0-0.2); BASOPHIL % 1.3 % (0.0-2.0); EOSINOPHIL # 0.5 TH/MM3 (0-0.4); EOSINOPHIL % 10.9 % (0.0-4.0); HEMATOCRIT 29.6 % (39.0-51.0); HEMO FLAGS DIFF FINAL; LYMPH % 19.8 % (9.0-44.0); LYMPHOCYTE # 0.9 TH/MM3 (1.0-4.8); MEAN CELL VOLUME 95.9 FL (80.0-100.0); MEAN CORPUSCULAR HEMOGLOBIN 29.1 PG (27.0-34.0); MEAN CORPUSCULAR HGB CONC 30.3 % (32.0-36.0); MONO % 23.1 % (0.0-8.0); NEUT % 44.9 % (16.0-70.0); PLATELET COUNT 142 TH/MM3 (150-450); RED BLOOD COUNT 3.08 MIL/MM3 (4.50-5.90); RED CELL DISTRIBUTION WIDTH 18.8 % (11.6-17.2); WHITE BLOOD COUNT 4.3 TH/MM3 (4.0-11.0)
[2016-08-27 04:50] LABS: INTERNATIONAL NORMALIZED RATIO 2.4 RATIO
[2016-08-27] MEDS: LEVOTHYROXINE SODIUM 100 MCG TAB PO SCH (05:02)
[2016-08-27 05:12] LABS: ALKALINE PHOSPHATASE 54 U/L (45-117); ALT (GPT) 37 U/L (12-78); ANION GAP 13 MEQ/L (5-15); AST (GOT) 34 U/L (15-37); BICARBONATE 25.6 MEQ/L (21.0-32.0); BLOOD UREA NITROGEN 55 MG/DL (7-18); CHLORIDE 102 MEQ/L (98-107); GLOMERULAR FILTRATION RATE 4 ML/MIN (>89); POTASSIUM 3.7 MEQ/L (3.5-5.1); SODIUM (NA) 141 MEQ/L (136-145); TOTAL BILIRUBIN ADULT 0.6 MG/DL (0.2-1.0)
[2016-08-27] MEDS: CALCIUM ACETATE 667 MG CAP PO SCH ×2 (08:00→13:48)
[2016-08-27 08:08] VITALS: BP 88/36; PULSE 77; RESP 18; TEMP 97.1; O2SAT 100
[2016-08-27 08:20] VITALS: O2SAT 97
[2016-08-27] MEDS ORDERED: ALUMINUM/MAGNESIUM/SIMETH 30 ML CUP PO PRN (09:00)
[2016-08-27] MEDS: SODIUM CHLORIDE 0.9% FLUSH 5 ML FLUSH IVF SCH (09:00)
[2016-08-27 10:20] VITALS: PULSE 79
--- NOTE | 2016-08-27 11:25 | HHI.NPPN ---
Subjective General Problems: Anemia, Edema, Heart Disease, Hypertension Renal Failure: End Stage Renal Disease History of Present Illness 46-year-old male with past medical history of ischemic heart disease, atrial fibrillation, congestive heart failure, hypertension, history of deep vein thrombosis on warfarin, history of steal syndrome in the left hand and history of end-stage renal disease on hemodialysis three times per week, who came to the hospital with complaint of chest pain. I was called to see the patient for the management of dialysis. The patient has been on hemodialysis Saturday, Saturday and Saturday. He is following with Dr. Salazar. He lives in [place]. Additional Remarks Patient is alert, seen on HD, chest pain is better with antacids. Review of Systems General Constitutional: Fatigue Cardiovascular Cardiac: Chest Pain Objective Data Data 08/26/16 08/27/16 19:00 07:00 Intake Total 480 ml Balance 480 ml Intake Oral 480 ml # Voids 2 Vital Signs Date Time Temp Pulse Resp B/P Pulse Ox O2 Delivery O2 Flow Rate FiO2 08/27/16 10:20 79 08/27/16 08:08 97.1 77 18 88/36 100 08/27/16 00:42 14 08/27/16 00:00 98.2 78 21 112/68 98 08/26/16 21:47 98.8 77 18 115/47 98 08/26/16 16:00 97.9 74 18 155/94 95 08/26/16 12:56 97.6 72 18 127/62 98 -: 08/27/16 0401 08/27/16 0401 Physical Exam General Appearance: No Acute Distress, Comfortable Eyes Eye Exam: Pupils Equal Throat Throat Exam: Oral Mucosa [place] & Moist Neck Neck Exam: Neck Supple Pulmonary Resp Exam: Clear Bilaterally, Breath Sounds Equal, No Distress, Decreased Bases Cardiology CV Exam: Irregular Gastrointestinal/Abdomen GI Exam: Soft, Non-Tender, Bowel Sounds Present Extremeties Extremities Exam: Trace Edema Neurologic Neuro Exam: Alert, Awake, Oriented Psychiatric Psych Exam: Appropriate Responses Assessment/Plan Assessment Summary: Hypertension, End Stage Renal Disease Problem List: (1) CHF (congestive heart failure) (2) Hypertension (3) Dysphagia (4) ACS rule out (5) History of Afib and DVT (6) Hypothyroidism (7) ESRD (end stage renal disease) Plan Patient now on HD. Retrosternal chest pain is better. Trop I remain low, 0.06-0.08 BP is better controlled. HD now, remove fluid as tolerated. If D/C, to continue HD MWF and follow with Dr. Salazar. Problem Qualifiers (1) CHF (congestive heart failure): (2) Hypertension: Qualified Code: I10 - Essential hypertension Luis Felipe Ellington MD Aug 27, 2016 11:25
--- NOTE | 2016-08-27 11:43 | RADRPT ---
EXAM DATE/TIME: 08/27/2016 08:33 [facility] COMPARISON: No previous studies available for comparison. INDICATIONS: Dysphagia, reflux FLUORO TIME: 1.0 minutes IMAGE COUNT: 7 CONTRAST: 1. Liquid E-Z Paque Barium Sulfate (60% w/v, 41% w.w) MEDICAL HISTORY: Gastroesophageal reflux disease. Dialysis for kidney failure since 2000 SURGICAL HISTORY: Endoscopy 05/2016 for stomach pain, colostomy for 6 mos. for diverticulitis ENCOUNTER: Initial ACUITY: 3 weeks PAIN SCORE: Non-responsive. LOCATION: Bilateral neck FINDINGS: CT films of the cervical esophagus reveals a very small Zenker's diverticulum that does not impede th e flow of barium. Thoracic esophagus is unremarkable. I could not elicit a reflux. CONCLUSION: Tiny Zenker's diverticulum, otherwise negative. Presley Frausto MD FACR on August 27, 2016 at 11:27 Board Certified Radiologist. This report was verified electronically.
[2016-08-27 13:18] VITALS: BP 145/82; PULSE 86; RESP 18; O2SAT 95
[2016-08-27] MEDS: FAMOTIDINE 20 MG TAB PO SCH (13:47)
[2016-08-27] MEDS: AMIODARONE 200 MG TAB PO SCH (13:47)
[2016-08-27] MEDS: VITAMIN B CMPLX/VITC/FOLIC AC CAP PO SCH (13:48)
[2016-08-27] MEDS ORDERED: WARFARIN SOD 4 MG TAB PO SCH (16:00)
--- NOTE | 2016-08-27 16:52 | HHI.FF ---
Face to Face Verification Diagnosis: (1) ESRD (end stage renal disease) (2) hand wound Physical Therapy Order: Evaluate and Treat, Improve ambulation, Strength and gait training Home Health Nursing Order: Medical education Signs/symptoms of disease process Medication education-adverse effect Wound care and dressing changes I have seen patient Miko Basilio on 08/27/16. My clinical findings support the need for the requested home health care services because: Ltd mobility - disease progression Med compliance is questionable Limited ability to care for self I certify that my clinical findings support that this patient is homebound because: Unsafe to leave home unassisted Low Mcallister MD R2 Aug 27, 2016 16:52
--- NOTE | 2016-08-27 16:54 | HHI.DCPOC ---
Discharge Care Plan Diagnosis: (1) CHF (congestive heart failure) (2) ESRD (end stage renal disease) Goals to Promote Your Health * To prevent worsening of your condition and complications * To maintain your health at the optimal level Directions to Meet Your Goals Take your medications as prescribed Follow your dietary instruction Follow activity as directed Keep your appointments as scheduled Take your immunizations and boosters as scheduled If your symptoms worsen call your PCP, if no PCP go to Urgent Care Center or Emergency Room Smoking is Dangerous to Your Health. Avoid second hand smoke Call the 24-hour hour crisis hotline for domestic abuse at Low Mcallister MD R2 Aug 27, 2016 16:54
--- NOTE | 2016-08-27 16:58 | HHI.FPPN ---
Subjective Remarks Patient is doing okay today. He is back from hemodialysis. He continues to complain of some weakness, but overall he is improving. Obtain records from [facility]. Patient feels like he can go home today. No chest pain , nausea, vomiting, shortness of breath. (Low Mcallister MD R2) Objective Vitals Vital Signs Date Time Temp Pulse Resp B/P Pulse Ox O2 Delivery O2 Flow Rate FiO2 08/27/16 13:18 86 18 145/82 95 08/27/16 10:20 79 08/27/16 09:22 20 08/27/16 08:20 97 21 08/27/16 08:08 97.1 77 18 88/36 100 08/27/16 00:00 98.2 78 21 112/68 98 08/26/16 21:47 98.8 77 18 115/47 98 I/O 08/26/16 08/26/16 08/26/16 08/27/16 08/27/16 08/27/16 07:00 15:00 23:00 07:00 15:00 23:00 Intake Total 480 ml Output Total 1800 ml Balance 480 ml -1800 ml Intake Oral 480 ml Output Hemodialysis 1800 ml # Voids 2 1 (Low Mcallister MD R2) Result Diagram: 08/27/16 0401 08/27/16 0401 Objective Remarks GENERAL: Adult male of stated age in no respiratory distress SKIN: 3 fingers of left hand wrapped in dressing, well-healing longitudinal scar on left medial extremity running from lower leg to thigh, AV fistula present on left upper extremity HEAD: Atraumatic. Normocephalic. No temporal or scalp tenderness. EYES: Pupils equal round and reactive. Extraocular motions intact. No scleral icterus. No injection or drainage. ENT: Nose without bleeding, purulent drainage or septal hematoma. Throat without erythema, tonsillar hypertrophy or exudate. Uvula midline. Airway patent. NECK: Trachea midline. No JVD or lymphadenopathy. Supple, nontender, no meningeal signs. CARDIOVASCULAR: Regular rate, paced rhythm. RESPIRATORY: Clear to auscultation. Breath sounds equal bilaterally. No wheezes , rales, or rhonchi. GASTROINTESTINAL: Abdomen soft, non-tender, nondistended. No hepato-splenomegaly , or palpable masses. No guarding. MUSCULOSKELETAL: Extremities without clubbing, cyanosis, or edema. No joint tenderness, effusion, or edema noted. NEUROLOGICAL: Awake and alert. Cranial nerves II through XII intact. (Low Mcallister MD R2) A/P Assessment and Plan 46 y/o male with a PMH of AFIB s/p ablation, [place] secondary to hyperphosphatemia, CHF s/p AICD placement, ESRD, DVTs, and HTN presents with a chief complaint of weakness after dialysis. He will be admitted on observation for ACS rule out. Discharge Planning Likely today. Will request CT scan records [facility] to confirm that patient does not have an esophageal perforation. Barium swallow shows mild Zenker diverticulum, otherwise negative (Low Mcallister MD R2) Attending Attestation Patient seen and examined. Case reviewed and discussed Agree with plan of care as discussed with me and documented in the resident note (Shabana Lazar MD) Problem List: (1) ACS rule out Status: Acute Plan: -Initial troponin elevated at 0.07 - most likely due to ESRD -Initial EKG shows electronic ventricular pacemaker rhythm -Troponin/EKG 3 wnl -Chest x-ray within normal limits (2) CHF (congestive heart failure) Status: Chronic Plan: -AICD in place -Clear chest x-ray - will monitor for signs of fluid overload -Vitals every 4 hours (3) ESRD (end stage renal disease) Status: Chronic Plan: -Patient receives dialysis on Saturday, Saturday, Saturday -Nephrology consult for dialysis while inpatient (4) History of Afib and DVT Status: Chronic Plan: -Continue Warfarin - pharmacy consulted to assist with management (5) Dysphagia Status: Acute Plan: -Barium swallow shows tiny Zenker diverticulum, otherwise negative (6) Hypertension Status: Chronic Plan: -Normotensive on admission -We will continue to monitor (7) Hypothyroidism Status: Chronic Plan: -TSH elevated at 19.6 -Free T4 WNL at 1.03 -Continue levothyroxine 100 g PO daily (8) Malnutrition Status: Acute Plan: -Renal diet -Dietary consult to assist with nutritional needs in the setting of dysphagia (9) FEN/DVT PPX/GI PPX Status: Acute Plan: Fluids: Oral fluids only Electrolytes: Will monitor and replace as needed Nutrition: Renal diet DVT Prophylaxis: Currently on warfarin 5 mg with pharmacy consult GI Prophylaxis: Famotidine 20 mg by mouth daily Wound care to assist with dressing changes for left hand (Low Mcallister MD R2) Problem Qualifiers (1) CHF (congestive heart failure): (2) Hypertension: Qualified Code: I10 - Essential hypertension Low Mcallister MD R2 Aug 27, 2016 16:58 Shabana Lazar MD Aug 28, 2016 14:41
[2016-08-27] MEDS ORDERED: LIDO1SOL8 SWISH-SWAL (17:18)
[2016-08-27] MEDS ORDERED: MAG-LIQ PO (17:18)
--- NOTE | 2016-09-01 16:17 | HHI.DS ---
Discharge Summary Admission Date Aug 25, 2016 at 17:12 Admitting Diagnosis ACS (1) ACS rule out Diagnosis: Principal (2) CHF (congestive heart failure) Diagnosis: Secondary (3) ESRD (end stage renal disease) Diagnosis: Secondary (4) History of Afib and DVT Diagnosis: Secondary (5) Dysphagia Diagnosis: Secondary (6) Hypertension Diagnosis: Secondary (7) Hypothyroidism Diagnosis: Secondary (8) Malnutrition Diagnosis: Secondary Brief History Patient is a 46-year-old male with a past medical history of AFIB s/p ablation, [place], CHF s/p AICD placement, ESRD, DVTs, and HTN that presents to the [facility] ED with a chief complaint of chest pain and weakness that began after he had dialysis yesterday 08/24. He describes the chest pain as sharp pain that is worse when he takes deep breaths. The patient also has additional complaints including throat pain began in May 2016 after he had an esophageal perforation from endoscopy. Consequently, he has not been able to eat much and has lost 25 pounds. He complains that he is malnourished and needs help. He denies fever, nausea, dizziness, vomiting, and night sweats but states that he feels cold all the time. He has dialysis every Saturday, Saturday and Saturday, and his can reconditioner is Dr. Brooks Salazar. PCP is Dr. Ravi Flores. PE at Discharge GENERAL: Adult male of stated age in no respiratory distress SKIN: 3 fingers of left hand wrapped in dressing, well-healing longitudinal scar on left medial extremity running from lower leg to thigh, AV fistula present on left upper extremity HEAD: Atraumatic. Normocephalic. No temporal or scalp tenderness. EYES: Pupils equal round and reactive. Extraocular motions intact. No scleral icterus. No injection or drainage. ENT: Nose without bleeding, purulent drainage or septal hematoma. Throat without erythema, tonsillar hypertrophy or exudate. Uvula midline. Airway patent. NECK: Trachea midline. No JVD or lymphadenopathy. Supple, nontender, no meningeal signs. CARDIOVASCULAR: Regular rate, paced rhythm. RESPIRATORY: Clear to auscultation. Breath sounds equal bilaterally. No wheezes , rales, or rhonchi. GASTROINTESTINAL: Abdomen soft, non-tender, nondistended. No hepato-splenomegaly , or palpable masses. No guarding. MUSCULOSKELETAL: Extremities without clubbing, cyanosis, or edema. No joint tenderness, effusion, or edema noted. NEUROLOGICAL: Awake and alert. Cranial nerves II through XII intact. Hospital Course Mr. Basilio was admitted on observation for ACS rule out. His initial troponin was 0.07 which is most likely due to ESRD. Repeat troponins and EKGs were within normal limits. Due to patient's complaint of dysphagia, a barium swallow was conducted which showed a tiny Zenker diverticulum but was otherwise negative. Nephrology was consulted and arranged for dialysis during his hospital stay. Due to improvement of patient's chest pain and considering that he no longer had any acute issues that were being managed in the hospital, he was discharged home in stable condition to follow up with his PCP in one week and nephrology in 2 weeks. He is to repeat TSH and free T4 in 6 weeks due to elevated TSH found during admission. Pt Condition on Discharge: Stable Discharge Disposition: Disch w/ Home Health Serv Discharge Instructions DIET: Follow Instructions for: Renal Failure Diet Activities you can perform: See Additionl Instruction Other Activity Instructions: Per PT recommendations Follow up Referrals: Appointment for Follow Up - 1 Week Nephrology - 2 Weeks New Orders: FREE T4 - 6 Weeks TSH 3RD GEN - 6 Weeks New Medications: Qftmdxwu-Pxnyvebby-Hwngnemwkkw Liq (Mag-Al Plus Liq) 200-200-20 Mg/5 Ml Susp 30 ML PO Q6H PRN NAUSEA #1 Ref 3 BOTTLE Lidocaine Viscous Liq (Lidocaine Viscous Liq) 2 % Liqd 15 ML SWISH-SWAL Q4H PRN NAUSEA #1 Ref 3 BOTTLE Continued Medications: Amiodarone (Amiodarone) 100 Mg Tab 100 MG PO BID Regulate Heart Beat #60 Ref 0 TAB B-Complex W/ Y-Veofyy-W-Minerals (Dialyvite 3000 Rx) 1 Tab 1 TAB PO DAILY TAB Calcium Acetate (Phosphate Binder) (Phoslo) 667 Mg Cap 800 MG PO TID Hyperphosphatemia #180 Ref 0 CAP Famotidine (Pepcid) 20 Mg Tab 20 MG PO BID #60 Ref 0 TAB Levothyroxine (Levothyroxine) 100 Mcg Tab 100 MCG PO DAILY Thyroid #30 Ref 0 TAB Lorazepam (Lorazepam) 1 Mg Tab 1 MG PO HS PRN ANXIETY AND/OR INSOMNIA Ref 0 TAB Morphine ER (Morphine ER) 30 Mg Tab 30 MG PO Q8H Pain Management Ref 0 TAB Morphine IR (Morphine IR) 15 Mg Tab 15 MG PO Q4H PRN PAIN Ref 0 TAB Omeprazole (Omeprazole) 20 Mg Tab 20 MG PO DAILY #30 Ref 0 TAB Warfarin (Coumadin) 5 Mg Tab 5 MG PO DAILY Blood Clot Prevention #30 Ref 0 TAB Gertrude Escalante MD R1 Sep 01, 2016 16:17
== END 2016-08-27 18:27 | disposition home or self-care (01) ==
LOC: NEPA 12:49 → NEDA 17:12 → NEPGCP 20:13
PROVIDERS: ADMIT Family Medicine; ATTEND Family Medicine
DX: I50.22 Chronic systolic (congestive) heart failure (principal); I12.0 Hypertensive chronic kidney disease with stage 5 chronic kidney disease or end stage renal disease; N18.6 End stage renal disease; D63.1 Anemia in chronic kidney disease; I48.91 Unspecified atrial fibrillation; I25.9 Chronic ischemic heart disease, unspecified; E87.6 Hypokalemia; E03.9 Hypothyroidism, unspecified; E46 Unspecified protein-calorie malnutrition; E83.39 Other disorders of phosphorus metabolism; R13.10 Dysphagia, unspecified; M54.5 Low back pain; Z86.718 Personal history of other venous thrombosis and embolism; Z79.01 Long term (current) use of anticoagulants; Z95.810 Presence of automatic (implantable) cardiac defibrillator; Z99.2 Dependence on renal dialysis; Z87.891 Personal history of nicotine dependence
CPT/HCPCS: 71020; 73552; 74230; 80053; 83735; 84100; 84439; 84443; 84484; 85025; 85610; 85730; 87040; 92610; 93005; 93970; 96374; 97110; 97116; 97163; 99285; G0257; G0378; G8987; G8988; G8996; G8997; G8998; J2270; Q4081; 90935